=== PATIENT | male | born 1985 | race Caucasian/White ===

== ENCOUNTER → 2017-04-22 | Outpatient (REF) | payer OTHER | LOC: M SFHCLERA 11:40 | PROVIDERS: ATTEND Physician Assistant | DX: J02.9 Acute pharyngitis, unspecified (principal) ==

== ENCOUNTER 2018-04-09 13:16 | Emergency (ER) | payer OTHER ==
[2018-04-09] MEDS: BACLOFEN 10 MG TAB PO (18:15)
[2018-04-09] MEDS: PERCOCET 5MG/325MG TAB PO (18:24)
== END 2018-04-09 19:41 | disposition home or self-care (01) ==
LOC: M ED 13:16
DX: Z04.1 Encounter for examination and observation following transport accident (principal); S00.03XA Contusion of scalp, initial encounter; S13.4XXA Sprain of ligaments of cervical spine, initial encounter; V47.5XXA Car driver injured in collision with fixed or stationary object in traffic accident, initial encounter; Y92.410 Unspecified street and highway as the place of occurrence of the external cause; Z86.69 Personal history of other diseases of the nervous system and sense organs
CPT/HCPCS: 99283

== ENCOUNTER → 2018-04-12 | Outpatient (CLI) | payer OTHER | LOC: M LRY 10:51 | DX: M54.2 Cervicalgia (principal) ==